=== PATIENT | male | born 1995 | race Caucasian/White ===

== ENCOUNTER 2017-09-18 22:59 | Emergency (ER) | payer OTHER ==
--- NOTE | 2017-09-18 23:14 | EDPHY ---
H & P Stated Complaint: [id number] for depression Time Seen by Provider: 09/18/17 23:14 HPI/ROS: HPI CHIEF COMPLAINT: Lightheadedness, dizziness, global weakness, increased thirst , increased urination HISTORY OF PRESENT ILLNESS: Patient is a 22-year-old male, he does have a history of hypothyroidism, he presents emergency room with a multitude of complaints his main complaint is lightheadedness, sometimes intermittent global weakness, increased thirst, increased urination, and unable to feel full. He has been increasing his diet. Eating more and more but does not get full. He denies any chest pain or shortness of breath, denies fever, denies recent illness. He does state he has hypothyroidism he has gained some weight recently. He is concerned that he may have diabetes. He does have a history of depression and gets ketamine infusions. His last ketamine infusion was 2 weeks ago. Past Medical History: Depression Past Surgical History: Denies recent surgery Social History: Denies daily use of drugs alcohol tobacco. Student. Father is a physician. 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 Family History: Noncontributory ROS REVIEW OF SYSTEMS: A comprehensive 10 point review of systems is otherwise negative aside from elements mentioned in the history of present illness. Exam Constitutional appears well nontoxic no acute distress, vital signs stable, triage nursing summary reviewed, vital signs reviewed, awake/alert. Eyes normal conjunctivae and sclera, EOMI, PERRLA. HENT normal inspection, atraumatic, moist mucus membranes, no epistaxis, neck supple/ no meningismus, no raccoon eyes. Respiratory clear to auscultation bilaterally, normal breath sounds, no respiratory distress, no wheezing. Cardiovascular rate normal, regular rhythm, no murmur, no edema, distal pulses normal. Gastrointestinal soft, non-tender, no rebound, no guarding, normal bowel sounds, no distension, no pulsatile mass. Genitourinary no CVA tenderness. Musculoskeletal no midline vertebral tenderness, full range of motion, no calf swelling, no tenderness of extremities, no meningismus, good pulses, neurovascularly intact. Skin pink, warm, & dry, no rash, skin atraumatic. Neurologic awake, alert and oriented x 3, AAOx3, moves all 4 extremities equally, motor intact, sensory intact, CN II-XII intact, normal cerebellar, normal vision, normal speech. Psychiatric normal mood/affect. Heme/Lymph/Immune no lymphadenopathy. Differential Diagnosis: Includes but is not limited to in a particular order electrolyte disturbance, dehydration, cardiac arrhythmia, diabetes, thyroid disease Medical Decision Making: Plan for this patient check basic blood work, EKG, electrolytes, urine, TSH, re-evaluate. Re-evaluation: EKG interpretation by me on record in [employer] system. Impression time of EKG 2333, sinus rhythm rate of 97 without any signs of acute ischemia or cardiac arrhythmia. 1252: Patient resting comfortably no acute distress. Has no complaints at this time. Reviewed blood work with him. His thyroid TSH is elevated. Recommend close follow-up with his primary care doctor about hypothyroidism. No evidence of diabetes electrolytes are appropriate. He appears well nontoxic and return precautions discussed with him. ED x-ray chest one view negative for acute cardiopulmonary disease. Source: Patient - Personal History Current Tetanus Diphtheria and Acellular Pertussis (TDAP): Yes - Medical/Surgical History Hx Asthma: No Hx Chronic Respiratory Disease: No Hx Diabetes: No Hx Cardiac Disease: No Hx Renal Disease: No Hx Cirrhosis: No Hx Alcoholism: No Hx HIV/AIDS: No Hx Splenectomy or Spleen Trauma: No Other PMH: depression, anxiety PILONIDAL CYST - Social History Smoking Status: Never smoked Constitutional: Initial Vital Signs Temperature (C) 36.9 C 09/18/17 23:11 Heart Rate 97 09/18/17 23:11 Respiratory Rate 16 09/18/17 23:11 Blood Pressure 145/82 H 09/18/17 23:11 O2 Sat (%) 97 09/18/17 23:11 O2 Delivery Mode Room Air Allergies/Adverse Reactions: No Known Allergies Allergy (Unverified 09/18/17 23:10) Home Medications: Medication Instructions Recorded Docusate Sodium [Colace] 100 mg PO BID #10 cap 12/24/14 [place] Carbonate 12/24/14 Paxil 12/24/14 Synthroid 12/24/14 traZODONE 12/24/14 Cerefolin-Medical Food 09/18/17 Ketamine 09/18/17 Nuvigil 09/18/17 Medical Decision Making - Diagnostics Imaging Results: Imaging Impressions Chest X-Ray 09/18/17 23:22 Impression: 1. No acute pulmonary disease. 2. Consider chest two views when the patient's medical condition permits. - Data Points Laboratory Results: Laboratory Results 09/18/17 23:28 09/18/17 23:28 09/18/17 09/18/17 09/18/17 23:32 23:28 23:28 WBC 9.84 10^3/uL H 10^3/uL (3.80-9.50) RBC 4.68 10^6/uL 10^6/uL (4.40-6.38) Hgb 15.0 g/dL g/dL (13.7-17.5) Hct 42.9 % % (40.0-51.0) MCV 91.7 fL fL (81.5-99.8) MCH 32.1 pg pg (27.9-34.1) MCHC 35.0 g/dL g/dL (32.4-36.7) RDW 12.2 % % (11.5-15.2) Plt Count 285 10^3/uL 10^3/uL (150-400) MPV 9.2 fL fL (8.7-11.7) Neut % (Auto) 63.3 % % (39.3-74.2) Lymph % (Auto) 27.2 % % (15.0-45.0) Burt % (Auto) 6.2 % % (4.5-13.0) Eos % (Auto) 2.0 % % (0.6-7.6) Baso % (Auto) 0.8 % % (0.3-1.7) Nucleat RBC Rel Count 0.0 % % (0.0-0.2) Absolute Neuts (auto) 6.22 10^3/uL 10^3/uL (1.70-6.50) Absolute Lymphs (auto) 2.68 10^3/uL 10^3/uL (1.00-3.00) Absolute Monos (auto) 0.61 10^3/uL 10^3/uL (0.30-0.80) Absolute Eos (auto) 0.20 10^3/uL 10^3/uL (0.03-0.40) Absolute Basos (auto) 0.08 10^3/uL 10^3/uL (0.02-0.10) Absolute Nucleated RBC 0.00 10^3/uL 10^3/uL (0-0.01) Immature Gran % 0.5 % % (0.0-1.1) Immature Gran # 0.05 10^3/uL 10^3/uL (0.00-0.10) Sodium 136 mEq/L mEq/L (135-145) Potassium 3.7 mEq/L mEq/L (3.3-5.0) Chloride 103 mEq/L mEq/L (97-110) Carbon Dioxide 24 mEq/l mEq/l (22-31) Anion Gap 9 mEq/L mEq/L (8-16) BUN 17 mg/dL mg/dL (7-23) Creatinine 1.0 mg/dL mg/dL (0.7-1.3) Estimated GFR > 60 Glucose 100 mg/dL mg/dL (70-100) Calcium 10.4 mg/dL mg/dL (8.5-10.4) Magnesium 1.9 mg/dL mg/dL (1.6-2.3) Total Bilirubin 0.4 mg/dL mg/dL (0.1-1.4) Conjugated Bilirubin 0.4 mg/dL mg/dL (0.0-0.5) Unconjugated Bilirubin 0.0 mg/dL mg/dL (0.0-1.1) AST 33 IU/L IU/L (17-59) ALT 59 IU/L IU/L (21-72) Alkaline Phosphatase 80 IU/L IU/L (38-126) POC Troponin I 0.00 ng/mL ng/mL (0.00-0.08) Total Protein 8.2 g/dL g/dL (6.3-8.2) Albumin 4.9 g/dL g/dL (3.5-5.0) TSH 5.460 uIU/mL H uIU/mL (0.465-4.680) Medications Given: Discontinued Medications Sodium Chloride (Ns) 1,000 mls @ 0 mls/hr IV EDNOW ONE; Wide Open PRN Reason: Protocol Stop: 09/18/17 23:23 Last Admin: 09/18/17 23:34 Dose: 1,000 mls Point of Care Test Results: Chemistry 09/18/17 23:32 POC Troponin I 0.00 ng/mL ng/mL (0.00-0.08) Departure - Departure Disposition: Home, Routine, Self-Care Clinical Impression: Lightheadedness Hypothyroid Qualifiers: Hypothyroidism type: unspecified Qualified Code(s): E03.9 - Hypothyroidism, unspecified Condition: Good Instructions: Lightheadedness (ED) Additional Instructions: 1. Return to the emergency room if he develops any worsening symptoms questions or concerns 2. Please follow up with her primary care doctor as well. 3. Follow up with her primary care doctor about your hypothyroid. Referrals: NONE *PRIMARY CARE P,. [Primary Care Provider] - As per Instructions
[2017-09-18] MEDS ORDERED: NS 1,000 ML IV ONE (23:22)
--- NOTE | 2017-09-18 23:35 | CPEKG ---
Heart Rate: 97 RR Interval: 619 P-R Interval: 180 QRSD Interval: 90 QT Interval: 348 QTC Interval: 442 P Calion: 24 QRS Calion: 12 T Wave Calion: 40 EKG Severity - NORMAL ECG - EKG Impression: SINUS RHYTHM Electronically Signed By: Deshawn Solis 19-Sep-2017 07:33:00
[2017-09-18 23:39] LABS: PLATELET COUNT 285 10^3/uL (150-400)
[2017-09-19 01:00] VITALS: BP 124/72
== END 2017-09-19 01:00 | disposition home or self-care (01) ==
DX: R42 Dizziness and giddiness (principal); E03.9 Hypothyroidism, unspecified; E86.9 Volume depletion, unspecified
CPT/HCPCS: 84484-PO